=== PATIENT | female | born 1975 | race Caucasian/White ===

== ENCOUNTER 2018-08-13 11:17 | Inpatient (IN) | payer OTHER ==
[~2018-08-13] VITALS: Ht 167.6 cm; Wt 101.6 kg
[2018-08-13] VITALS (52 sets, daily range): BP systolic 112–205; BP diastolic 61–100
[2018-08-13] MEDS ORDERED: NIFEdipine 10 MG CAP PO ONE (12:15)
[2018-08-13] MEDS ORDERED: CALCIUM GLUCONATE 1,000 MG in D5W MINI-BAG PLUS 100 ML IV PRN (12:15)
[2018-08-13] MEDS ORDERED: MAG Sulf (L&D) 4 GM/100 ML 4 GM in APPROPRIATE DILUENT 1 EA IV ONE (12:15)
[2018-08-13] MEDS: LR 1,000 ML IV SCH ×2 (12:34→23:29)
--- NOTE | 2018-08-13 12:42 | HPEPDOC ---
Obstetrical History & Physical General Date of Admission Aug 13, 2018 at 11:17 History of Present Illness 42 yo @ 39+0 by LMP([id number]) and 10+1 wk US on [id number] presents to L&D ambulatory for IOL d/t CHTN. Denies LOF, DFM, CTX, and vaginal bleeding. GBS negative. On admission pt had 2 severe range BPs with systolic greater than 200. 10 mg Nifedipine ordered PO. Chief Complaint: Induction of labor Information Provided By: Patient Age: 42 : 4 Term: 1 Pre-term: 0 Abortions: 2 Livin Care Care: Good Care (8) Number of Visits: 8 Dating Final EDC: Aug 20, 2018 Final EDC for Daily Update: Aug 20, 2018 Final EDC by: LMP, 1st trimester (US) LMP: November 13, 2017 1st Trimester Date: Jan 18, 2018 Weeks + Days: 10.1 Estimated Date of Confinement: Aug 20, 2018 EGA at Admission: 39.0 Antepartum Course Diagnos(e)s 1. CHTN 2. Pre-e with severe features 3. GDMA1 4. BMI-33.41 Height (inches): 66 Pre- weight (lbs.): 203 Admission Weight (lbs.): 224 Change in Weight (lbs.): 21 Past Medical History Past Obstetrical History : Past Obstetrical History: Multigravida Date of Delivery: Mar 10, 2004 Gestation: 39 Type of Delivery: Spontaneous Vaginal Del. Sex of Infant: Male Weight of (grams): 3515 Complications: No JIGGER ARTISAN History: Spontaneous (x 2, SAB <8 wks in 2005; SAB <8 wks in 2017) Past Medical History Medical History 1. obesity 2. depression Surgical History: [place] teeth Family History Significant Family History: No pertinent family hx Social History Marital Status: Family situation: Spouse/partner home Psychosocial History: Depression * Smoker: non-smoker Alcohol: Denies Drugs: denies Abuse Violence Screening Have you been hit/kicked/slapp: No Have you been sexually assault: No Imunizations Tdap status: current ([id number]) Influenza Status: declined Allergies Coded Allergies: No Known Allergies (Unverified , 08/13/18) Physical Examination Physical Examination GENERAL: A&O x 3 BREAST: . ABDOMEN: Gravid and non-tender to touch. FETUS: VTX by SVE and Rodrigo. HEART RATE: RRR LUNGS: CTA EXTREMITIES: No edema. No clonus. DTRs + 3 [id number] grams Cook balloon placed with 60/60 ml NS Laboratory Data 24H LABS Laboratory Tests 2 08/13/18 11:48: Serology Scanned Report Hepatitis B Testing CBC/BMP [id number] 10.8/14.0/42.0/266 [id number] 11.8/12.5/37.3/282 [id number]- low risk, male Urine Culture: Other (mixed felicia) Pertinent Laboratoy Data Blood Type: A+ RBC Antibody Screen: Negative HIV: Negative Hepatitis B: Negative Hepatitis C: Unknown Rapid Plasma Reagin: Nonreactive Rubella: Immune Varicella: Immune Chlamydia/Gonorrhea: Negative Group B Streptococcus: Negative Quad Screen Test: Declined Glucose Tolerance Test: 175 Anatomy Ultrasound Ultrasound Date: Apr 03, 2018 Placenta Location: Anterior (Right extending to Right posterior) Normal Anatomy: Yes Placenta Previa: No Estimated Weight (grams): 415 Other Ultrasounds [id number] EFW-3165 grams, 85% Steroid Therapy Steroid Therapy: No Vaginal Examination Dilation: 1cm Effacement: other (thick) Station: -3 Cervical Consistency: Soft Cervical Position: Posterior Presentation: Cephalic presentation Position: Vertex (occiput) Assessment Heart Rate (FHR): 140 Variability: Moderate Accelerations: Positive Decelerations: None Tocometer Contractions: Yes Frequency: regular (Q 6 min) Duration: less than 90 seconds Strength: palpated as mild Multi-drug resistant Organism: No history of MDRO Assessment/Plan Assessment 42 yo @ 39+0 presents to L&D ambulatory for IOL d/t CHTN. GBS negative. CAT I FHR tracing. Regular CTXs. CHTN, GDMA1, Pre-e with severe features, BMI > 33 Plan Admit and orient. Banana Carrier and consent. Diet: clear liquids GBS negative Labs and IV per unit protocol Pre-e labs Counseled on Pitocin and IOL Start Magnesium now Anticipate C-S as appropriate. Cook balloon placed Nifedipine order canceled d/t BP returning to mild range after magnesium started BERTRAND MAGALLANES CNM Aug 13, 2018 12:42
[2018-08-13 13:11] LABS: HEMATOCRIT 36.6 % (36.0-47.0); HEMOGLOBIN 12.3 g/dl (12.0-15.5); MEAN CORPUSCULAR HEMOGLOBIN 30.1 pg (27.0-33.0); MEAN CORPUSCULAR HGB CONC 33.6 g/dl (32.0-36.5); MEAN CORPUSCULAR VOLUME 89.5 fl (80.0-96.0); PLATELET COUNT, AUTOMATED 199 10^3/uL (150-450); RED BLOOD COUNT 4.09 10^6/uL (4.00-5.40); WHITE BLOOD COUNT 9.2 10^3/uL (4.0-10.0)
[2018-08-13 13:30] LABS: ALT/SGPT 13 U/L (12-78); LDH LACTATE DEHYDROGENASE 156 U/L (84-246); URIC ACID 3.2 MG/DL (2.6-6.0)
[2018-08-13 13:37] LABS: CREATININE,RANDOM URINE 81.4 MG/DL; TOTAL PROTEIN,RANDOM URINE 40.5 MG/DL (0.0-12.0)
[2018-08-13] MEDS: MAG Sulf (OBGYN) 20GM/500ML 20,000 MG in APPROPRIATE DILUENT 1 EA IV SCH ×2 (13:48→23:29)
[2018-08-13] MEDS ORDERED: OXYTOCIN DRIP 30 UNITS in APPROPRIATE DILUENT 1 EA IV SCH (17:30)
--- NOTE | 2018-08-13 17:43 | IPNPDOC ---
Text Note Date of Service The patient was seen on 08/13/18. NOTE [id number] @ 1729 42 yo @ 39+0 by LMP([id number]) and 10+1 wk US on [id number] presents to L&D ambulatory for IOL d/t CHTN. Diagnosed with CHTN with superimposed pre-e wi th severe features S: Pt is resting in bed. Sitting upright coloring with spouse at bedside. Issac es pain. Denies BERNARD, n/v, visual changes, and RUQ pain. O: VS- Normal-severe range BPs. Severe range BP followed by mild range BP. All other VS WNL, afebrile FHR- 120, moderate variability, + accels, no decels CTX- irregular, Q 2-7 min, lasting < 90 sec, palpated as mild, resting tone palpated as soft Cook Balloon pulled out SVE- deferred A: 42 yo @ 39+0 her for IOL d/t CHTN with superimposed pre-e with severe features. CAT I FHR tracing. Irregular CTXs, cook balloon out P: Initiate pitocin IOL per unit protocol. Cont to monitor and assess, reassess after 2 hours of regular CTXs, RN to report any severe range BPs VS,Ronalde, I+O VS, Ronalde, I+O Laboratory Tests 08/13/18 12:34 Red Blood Count 4.09, Mean Corpuscular Volume 89.5, Mean Corpuscular Hemoglobin 30.1, Mean Corpuscular Hemoglobin Concent 33.6, Red Cell Distribution Width 12.9 Vital Signs Date Time Temp Pulse Resp B/P (MAP) Pulse Ox O2 Delivery O2 Flow Rate FiO2 08/13/18 17:20 118 18 168/95 (119) 08/13/18 14:02 98.8 BERTRAND MAGALLANES CNM Aug 13, 2018 17:43
--- NOTE | 2018-08-13 19:18 | IPNPDOC ---
Text Note Date of Service The patient was seen on 08/13/18. NOTE [id number] Report given to Dr. Ruffin who assumed care of patient @ 1930. VS,Louie, I+O VS, [place], I+O Laboratory Tests 08/13/18 12:34 Red Blood Count 4.09, Mean Corpuscular Volume 89.5, Mean Corpuscular Hemoglobin 30.1, Mean Corpuscular Hemoglobin Concent 33.6, Red Cell Distribution Width 12.9 Vital Signs Date Time Temp Pulse Resp B/P (MAP) Pulse Ox O2 Delivery O2 Flow Rate FiO2 08/13/18 18:20 98.1 108 16 144/79 (100) BERTRAND MAGALLANES CNM Aug 13, 2018 19:18
[2018-08-13] MEDS ORDERED: FENTANYL 2MCG/ML ROPIVACAINE 0.2% IN 0.9% NACL 100ML IVBAG As Ordered ONE (23:25)
[2018-08-13 23:46] LABS: HEMATOCRIT 38.2 % (36.0-47.0); HEMOGLOBIN 12.6 g/dl (12.0-15.5); MEAN CORPUSCULAR HEMOGLOBIN 30.4 pg (27.0-33.0); PLATELET COUNT, AUTOMATED 217 10^3/uL (150-450); RED BLOOD COUNT 4.15 10^6/uL (4.00-5.40); WHITE BLOOD COUNT 12.1 10^3/uL (4.0-10.0)
[2018-08-14] VITALS (63 sets, daily range): BP systolic 87–164; BP diastolic 49–92
[2018-08-14] MEDS ORDERED: ONDANSETRON 4MG/2ML VIAL (J2405) IV PRN (00:32)
[2018-08-14] MEDS ORDERED: ePHEDrine SULFATE 25 MG/5 ML(5MG/ML) SYRINGE IV PRN (00:32)
[2018-08-14] MEDS ORDERED: REFRIGERATOR IV KEYS XX PRN (00:32)
[2018-08-14] MEDS ORDERED: diphenhydrAMINE INJ 50MG/ML VIAL (J1200) IV PRN (00:32)
[2018-08-14] MEDS ORDERED: EPIDURAL COMMENT XX SCH (00:32)
[2018-08-14] MEDS ORDERED: LACTATED RINGER'S 1000 ML IV PRN (00:32)
[2018-08-14] MEDS ORDERED: EPIDURAL/PCA KEYS XX PRN (00:32)
[2018-08-14] MEDS ORDERED: FENTANYL/ROPIVACAINE/NACL BAG 100 ML EPIDURAL SCH (00:32)
[2018-08-14] MEDS ORDERED: NALOXONE INJ 0.4 MG/1 ML VIAL (J2310) IV PRN (00:32)
--- NOTE | 2018-08-14 04:27 | IPNPDOC ---
Text Note Date of Service The patient was seen on 08/14/18. NOTE Intrapartum Note Sada is a 42yo with SIUP at 39w1d who presented yesterday for IOL 2/2 CHTN, but diagnosed with superimposed pre-E with severe features on arrival to L&D because she had persistent severe range bp's that normalized with initiation of MgSO4. She has also complicated by A1GDM, starting BMI 33 (Class 1 obesity), and AMA age 42. She had cook catheter placed and then initiated on pitocin, currently at pitocin of 10mu. She has epidural in place. 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 Ana Ruffin MD VS,Louie, I+O VS, Louie I+O Laboratory Tests 08/13/18 12:34 Red Blood Count 4.09, Mean Corpuscular Volume 89.5, Mean Corpuscular Hemoglobin 30.1, Mean Corpuscular Hemoglobin Concent 33.6, Red Cell Distribution Width 12.9 08/13/18 23:42 Red Blood Count 4.15, Mean Corpuscular Volume 92.0, Mean Corpuscular Hemoglobin 30.4, Mean Corpuscular Hemoglobin Concent 33.0, Red Cell Distribution Width 13.1 Vital Signs Date Time Temp Pulse Resp B/P (MAP) Pulse Ox O2 Delivery O2 Flow Rate FiO2 08/14/18 02:25 109 16 126/73 (90) 08/13/18 21:34 97.9 I&O- Last 24 Hours up to 6 AM 08/14/18 06:00 Intake Total 2930 ml Output Total 2125 ml Balance 805 ml Ana Ruffin MD Aug 14, 2018 04:27
[2018-08-14] MEDS ORDERED: DIBUCAINE 1% OINTMENT 30GM TOP PRN (06:30)
[2018-08-14] MEDS ORDERED: miSOPROStol 200 MCG TAB (S0191) PR ONE (06:30)
[2018-08-14] MEDS ORDERED: RHOGAM 300 MCG (1500 IU) INJ (J2790) IM SCH (06:30)
[2018-08-14] MEDS ORDERED: OXYTOCIN DRIP 30 UNITS in APPROPRIATE DILUENT 1 EA IV SCH (06:30)
[2018-08-14] MEDS ORDERED: DOCUSATE SODIUM 100 MG CAP PO PRN (06:30)
[2018-08-14] MEDS ORDERED: MEASLES,MUMPS,RUBELLA VACCINE INJ (MMR-II) (90707) SC SCH (06:30)
--- NOTE | 2018-08-14 06:41 | DNPDOC ---
[facility] Delivery Note Delivery Note DATE OF DELIVERY: 14 Aug 2018 PREDELIVERY DIAGNOSIS: 39w1d, iol for CHTN with super-imposed pre-eclampsia WITH severe features POST DELIVERY DIAGNOSIS: Delivered. PROCEDURE: Spontaneous vaginal delivery RESP THER: Dr. Ana Ruffin MD ANESTHESIA: epidural ESTIMATED BLOOD LOSS: 200 mL. FINDINGS: 7 pound 11 ounce (3500g) male , Score 8/9 DELIVERY SUMMARY: Sada is a 42yo [id number] with SIUP at 39w2d who presented yesterday for IOL 2/2 CHTN, but diagnosed with superimposed pre-E with severe features on arrival to L&D because she had persistent severe range bp's that normalized with initiation of MgSO4. She has also complicated by A1GDM, starting BMI 33 (Class 1 obesity), and AMA age 42. She had cook catheter placed and then initiated on pitocin which was titrated per protocol. She received an epidural, had SROM at some point after that which looked clear/bloody but scant. She progressed to C/C/+2 at which point she began pushing. head delivered OA, restituted GUIDO. Thick meconium noted at that point. Right anterior shoulder deli phong followed by posterior shoulder and corpus. was immediately vigorous with spontaneous cry, apgars 8/9, placed on maternal abdomen where nose/mouth were suctioned with bulb suction. After 1-2min, cord was clamped x2 and cut by FOB. With uterine massage and traction on the cord, placenta delivered spontaneously and intact with peripherally inserted 3 vessel cord. Bimanual uterine massage performed with fundus then firm at u-2cm. Inspection of perineum and vagina revealed small 2mll repaired with 3-0 vicryl in routine fashion with total hemostasis and excellent cosmesis. Gagnon catheter was replaced since she will be on MgSO4 for 24hr after delivery. EBL 200ml. 800mcg cytotec placed in rectum prophylactically. Mom and were doing well when I left the room. MD Augustin Mcintosh Katrina D MD Aug 14, 2018 06:41
[2018-08-14] MEDS: PRENATAL VITAMINS CHEWABLE TABLET PO SCH (08:06)
[2018-08-14] MEDS: LR 1,000 ML IV SCH ×3 (08:07→19:45)
[2018-08-14] MEDS: LABETALOL 200 MG TAB PO SCH ×2 (08:07→20:53)
[2018-08-14] MEDS: ACETAMINOPHEN 500 MG TAB PO PRN ×3 (08:07→20:17)
[2018-08-14] MEDS: MAG Sulf (OBGYN) 20GM/500ML 20,000 MG in APPROPRIATE DILUENT 1 EA IV SCH ×2 (09:11→18:46)
--- NOTE | 2018-08-14 18:12 | IPN ---
DATE: 08/13/2018 This patient requested circumcision of her male . After discussing risks and benefits of circumcision, the medical and nonmedical indications, penile block, and aftercare, expressed understanding penile block and aftercare. We had discussion with the investor relations director and maintenance technician, Dr. Geronimo, who suggested this baby not be circumcised, as it has an excessively large hypospadias, and therefore we will defer to neonatology and ongoing care of the baby.
[2018-08-14] MEDS ORDERED: FAMOTIDINE 20 MG TAB PO PRN (20:15)
[2018-08-15] VITALS (13 sets, daily range): BP systolic 98–148; BP diastolic 49–73
[2018-08-15] MEDS: LR 1,000 ML IV SCH ×2 (04:14→12:14)
[2018-08-15] MEDS: MAG Sulf (OBGYN) 20GM/500ML 20,000 MG in APPROPRIATE DILUENT 1 EA IV SCH (04:43)
[2018-08-15 07:04] LABS: HEMATOCRIT 29.9 % (36.0-47.0); MEAN CORPUSCULAR HEMOGLOBIN 30.4 pg (27.0-33.0); MEAN CORPUSCULAR HGB CONC 33.1 g/dl (32.0-36.5); MEAN CORPUSCULAR VOLUME 91.7 fl (80.0-96.0); PLATELET COUNT, AUTOMATED 186 10^3/uL (150-450); RED BLOOD COUNT 3.26 10^6/uL (4.00-5.40); WHITE BLOOD COUNT 10.1 10^3/uL (4.0-10.0)
[2018-08-15 07:15] LABS: HEMOGLOBIN 9.9 g/dl (12.0-15.5)
[2018-08-15 07:22] LABS: ALT/SGPT 10 U/L (12-78); BILIRUBIN,TOTAL 0.1 MG/DL (0.2-1.0); BLOOD UREA NITROGEN 7 MG/DL (7-18); CALCIUM LEVEL 6.7 MG/DL (8.5-10.1); CARBON DIOXIDE LEVEL 23 MEQ/L (21-32); CHLORIDE LEVEL 110 MEQ/L (98-107); CREATININE FOR GFR 0.66 MG/DL (0.55-1.30); GLOMERULAR FILTRATION RATE > 60.0 (>58); GLUCOSE, FASTING 74 MG/DL (70-100); SODIUM LEVEL 140 MEQ/L (136-145); TOTAL PROTEIN 5.2 GM/DL (6.4-8.2)
[2018-08-15] MEDS: PRENATAL VITAMINS CHEWABLE TABLET PO SCH (09:13)
[2018-08-15] MEDS: LABETALOL 200 MG TAB PO SCH ×2 (09:13→21:28)
--- NOTE | 2018-08-15 12:40 | IPN ---
DATE: 08/14/2018 This lady is a 42-year-old, 4, now para 2, admitted for induction of labor because of chronic hypertension at 39 weeks of gestation. She had an epidural in place and spontaneous vaginal delivery of a male , 7 pounds 11 ounces, 3500 grams, Apgars of 8 and 9 at one and five minutes respectively. Her risk factors are advanced maternal age (AMA), preeclampsia - severe, GDM A1, BMI of 33.41 and depression. She has been on magnesium sulfate now for 24 hours. No incidences are noted. We will discontinue her magnesium sulfate and her Gagnon catheter. Her blood pressure today is 117/65, respirations are 15, pulse 80, temperature 97.2. Her electrolytes are normal. Uric acid was 3.2. The rest of her blood work for today is still pending at 6:49 a.m. Her WBC on admission was 12.3, hematocrit 36.6 and platelets 199. Her first 12 hours hemoglobin was 12.6, hematocrit 38.2 and platelets 217. Her 08/15/2018 at 6:49 are still pending. Her vital signs today are within normal range. She is still on labetalol for blood pressure. We have discontinued the magnesium sulfate. The rest examination is unremarkable. Normocephalic, atraumatic. Neck: Full range of motion. Pupils equal and reactive to light. Distal pulses symmetric. No evidence of deep vein thrombosis (DVT), pulmonary embolism (PE) or superficial phlebitis. She has good brisk reflexes. No clonus was noted. Abdomen: Soft. Uterus two below. Lochia is moderate. Four quadrant bowel sounds are noted. Perineum is intact. She has no rashes, lesions or pruritus. No arthralgia or myalgia. No complaint of joint pain. No cough, wheeze, shortness of breath or dyspnea on exertion. No urgency, frequency or nausea, vomiting, diarrhea or constipation. In summary, we have an AMA with severe preeclampsia coming off magnesium sulfate. Plan of discharge tomorrow morning if the patient is stabilized.
[2018-08-15] MEDS: ACETAMINOPHEN 500 MG TAB PO PRN (23:02)
[2018-08-16 02:01] VITALS: BP 121/67
[2018-08-16 06:21] VITALS: BP 119/56
--- NOTE | 2018-08-16 08:22 | IPNPDOC ---
Text Note Date of Service The patient was seen on 08/16/18. NOTE PPD2 States feeling well, pain controlled with prescribed meds. Baby bonding and feeding well. No heavy VB. Lochia slowing. Ambulating and voiding well. Tolerating PO without issues. VSSAF NAD A&O RRR CTAB LE no C/C/E Ut at U-2, firm a/p: Doing well. Cont routine care. D/C today. Sessions VSLouie, I+O VSLouie I+O Vital Signs Date Time Temp Pulse Resp B/P (MAP) Pulse Ox O2 Delivery O2 Flow Rate FiO2 08/16/18 06:21 98.6 83 18 119/56 (77) 08/15/18 22:38 08/15/18 08:00 Room Air I&O- Last 24 Hours up to 6 AM0 08/16/18 06:00 Intake Total 2050 ml Output Total 1600 ml Balance 450 ml SESSIONS,CRISTHIAN Meza MD Aug 16, 2018 08:22
--- NOTE | 2018-08-16 08:29 | DS.PDOC ---
Discharge Summary General Date of Admission Aug 13, 2018 at 11:17 Date of Discharge [id number] Discharge Summary ADMITTING DIAGNOSES: Induction for pre-eclampsia DISCHARGE DIAGNOSES: Same, HOSPITAL COURSE: Admitted and delivery uncomplicated, . Severe range BP's that responded to Labetalol PO. course uncomplicated, received Mag Sulfate intrapartum and 24 hrs . DISCHARGE MEDICATIONS: Tylenol, Lanolin, Labetalol 200 BID DISCHARGE INSTRUCTIONS: Nothing in the vagina for 6 weeks. F/U in OBGYN clinic in 1-2 weeks for BP check and in 6-8 weeks. Sessions Vital Signs/I&Os Vital Signs Date Time Temp Pulse Resp B/P (MAP) Pulse Ox O2 Delivery O2 Flow Rate FiO2 08/16/18 06:21 98.6 83 18 119/56 (77) 08/15/18 22:38 08/15/18 08:00 Room Air I&O- Last 24 Hours up to 6 AM 08/16/18 06:00 Intake Total 2050 ml Output Total 1600 ml Balance 450 ml Allergies Coded Allergies: No Known Allergies (Unverified , 08/13/18) SESSIONS,CRISTHIAN Meza MD Aug 16, 2018 08:29
[2018-08-16] MEDS: PRENATAL VITAMINS CHEWABLE TABLET PO SCH (08:53)
[2018-08-16 08:54] VITALS: BP 135/63
[2018-08-16] MEDS: LABETALOL 200 MG TAB PO SCH (08:54)
[2018-08-16 09:00] VITALS: BP 135/63
[2018-08-16] MEDS ORDERED: COLA100C5 PO (10:45)
[2018-08-16] MEDS ORDERED: MAPA500T2 PO (10:45)
[2018-08-16] MEDS ORDERED: PRENTAB9 PO (10:45)
[2018-08-16] MEDS ORDERED: LABE20TAB PO (10:47)
== END 2018-08-16 11:05 | disposition home or self-care (01) | DRG 807 ==
LOC: M LDI 11:17 → M OBS 08-14 15:05
PROVIDERS: ADMIT Midwife; ATTEND Obstetrics & Gynecology
PROC: 3E033VJ Introduction of Other Hormone into Peripheral Vein, Percutaneous Approach (ICD-10-PCS; 2018-08-13)
PROC: 10E0XZZ Delivery of Products of Conception, External Approach (ICD-10-PCS; principal; 2018-08-14)
PROC: 0KQM0ZZ Repair Perineum Muscle, Open Approach (ICD-10-PCS; 2018-08-14)
DX: O14.14 Severe pre-eclampsia complicating childbirth (principal); Z37.0 Single live birth; Z3A.39 39 weeks gestation of pregnancy; O99.214 Obesity complicating childbirth; E66.9 Obesity, unspecified; Z68.33 Body mass index [BMI] 33.0-33.9, adult; O24.429 Gestational diabetes mellitus in childbirth, unspecified control; O77.0 Labor and delivery complicated by meconium in amniotic fluid; O70.1 Second degree perineal laceration during delivery